=== PATIENT | male | born 1970 | race Caucasian/White ===

== ENCOUNTER → 2023-11-25 15:19 | Outpatient (CLI) | payer OTHER, SELFPAY ==
--- NOTE | 2023-11-25 | DI.NM.S_ITS ---
PROCEDURE: NM EXERCISE TREADMILL NON NUC COMPARISON: None. INDICATIONS: HYPERLIPIDEMIA, DM, FAMILY HISTORY IHD FINDINGS: The patient exercised for 9 minutes reaching 86% of maximum predicted heart rate. Hypertension at rest (BP 150/96mmHg) and hypertensive response to exercise (max BP 212/104mmHg). No angina during the study. Mild downsloping ST depressions in the anterolateral and inferior leads during recovery. No ectopy present. IMPRESSION: Abnormal treadmill ECG only stress test. Hypertension at rest (BP 150/96mmHg) and hypertensive response to exercise (max BP 212/104mmHg). No angina during the study. Mild downsloping ST depressions in the anterolateral and inferior leads during recovery. Recommend exercise stress echo for further evaluation. Dictated by: Efren Quiroz MD on 11/26/2023 at 12:45 Approved by: Efren Quiroz MD on 11/26/2023 at 12:48
== END ==
PROVIDERS: Family Provider Family Medicine; PCP Family Medicine; Referring Provider Internal Medicine Cardiovascular Disease; Visit Provider Internal Medicine Cardiovascular Disease
DX: R94.39 Abnormal result of other cardiovascular function study (principal); E11.9 Type 2 diabetes mellitus without complications; E78.5 Hyperlipidemia, unspecified; Z82.49 Family history of ischemic heart disease and other diseases of the circulatory system
CPT/HCPCS: 93017